=== PATIENT | male | born 1955 | race Caucasian/White ===

== ENCOUNTER 2016-06-28 09:24 | Outpatient (CLI) | payer BC | END 2016-06-28 23:59 | DX: Z00.00 Encounter for general adult medical examination without abnormal findings (principal); Z12.5 Encounter for screening for malignant neoplasm of prostate ==

== ENCOUNTER 2016-07-20 11:38 | Outpatient (CLI) | payer BC | END 2016-07-20 11:39 | disposition home or self-care (01) | DX: S99.921A Unspecified injury of right foot, initial encounter (principal) ==

== ENCOUNTER 2017-01-04 14:30 | Outpatient (CLI) | payer BC | END 2017-01-04 14:31 | disposition home or self-care (01) | LOC: LAB.R 14:30 | PROVIDERS: ATTEND Internal Medicine | DX: E55.9 Vitamin D deficiency, unspecified (principal); Z79.899 Other long term (current) drug therapy | CPT/HCPCS: 82306 ==

== ENCOUNTER 2017-06-27 09:08 | Outpatient (CLI) | payer BC ==
[2017-06-27 17:49] LABS: BASOPHILS # (AUTO) 0.1 10^3/uL (0.0-0.1); BASOPHILS % (AUTO) 1.1 %; EOSINOPHILS # (AUTO) 0.1 10^3/uL (0.0-0.7); EOSINOPHILS % (AUTO) 1.4 %; HGB - HEMOGLOBIN 14.8 g/dL (14.0-18.0); LYMPHOCYTES # (AUTO) 1.2 10^3/uL (1.5-3.5); LYMPHOCYTES % (AUTO) 24.6 %; MEAN CORPUSCULAR HGB CONC 33.5 g/dL (32.0-36.0); MEAN CORPUSCULAR VOLUME 89.7 fL (80.0-94.0); MEAN PLATELET VOLUME 8.2 fL (7.4-11.4); MONOCYTES # (AUTO) 0.3 10^3/uL (0.0-1.0); MONOCYTES % (AUTO) 6.7 %; NEUTROPHILS # (AUTO) 3.3 10^3/uL (1.5-6.6); NEUTROPHILS % (AUTO) 66.2 %; PLT - PLATELET COUNT 193 10^3/uL (130-450); RED BLOOD COUNT 4.93 10^6/uL (4.70-6.10); RED CELL DISTRIBUTION WIDTH 12.9 % (12.0-15.0); WHITE BLOOD COUNT 4.9 x10^3/uL (4.8-10.8)
== END 2017-06-27 09:09 | disposition home or self-care (01) ==
LOC: LAB.F 09:08
PROVIDERS: ATTEND Internal Medicine
DX: G43.909 Migraine, unspecified, not intractable, without status migrainosus (principal); E55.9 Vitamin D deficiency, unspecified
CPT/HCPCS: 36415; 82306; 85025

== ENCOUNTER 2018-07-01 06:57 | Outpatient (CLI) | payer SELFPAY | END 2018-07-01 06:58 | disposition home or self-care (01) | LOC: LAB 06:57 | DX: Z01.89 Encounter for other specified special examinations (principal) | CPT/HCPCS: 36415 ==

== ENCOUNTER 2018-08-19 07:58 | Outpatient (CLI) | payer SELFPAY | END 2018-08-19 07:59 | disposition home or self-care (01) | LOC: LAB 07:58 | DX: Z01.89 Encounter for other specified special examinations (principal) | CPT/HCPCS: 36415 ==

== ENCOUNTER 2018-12-16 14:51 | Outpatient (CLI) | payer SELFPAY | END 2018-12-16 14:52 | disposition home or self-care (01) | LOC: LAB.S 14:51 | PROVIDERS: ATTEND Internal Medicine | DX: Z01.89 Encounter for other specified special examinations (principal) | CPT/HCPCS: 36415 ==

== ENCOUNTER 2019-01-08 09:04 | Outpatient (CLI) | payer BC ==
[2019-01-08 18:07] LABS: ALBUMIN 4.3 g/dL (3.2-5.5); ALBUMIN/GLOBULIN RATIO 1.7 (1.0-2.2); ALKALINE PHOSPHATASE 57 IU/L (42-121); ALT ALANINE AMINOTRANSFERASE 26 IU/L (10-60); AST ASPARTATE AMINOTRANSFERASE 34 IU/L (10-42); BILIRUBIN,TOTAL 1.1 mg/dL (0.2-1.0); BUN - BLOOD UREA NITROGEN 13 mg/dL (6-20); CALCIUM 9.4 mg/dL (8.5-10.3); CARBON DIOXIDE - CO2 29 mmol/L (21-32); CHLORIDE 102 mmol/L (101-111); CHOL/HDL RATIO 2.8 (<5.0); CHOLESTEROL 145 mg/dL; GFR - MDRD 75 (>89); GLUCOSE 96 mg/dL (70-100); HDL CHOLESTEROL 52 mg/dL; LDL CHOLESTEROL,CALCULATED 80 mg/dL; LDL/HDL RATIO 1.5 (<3.6); SODIUM 139 mmol/L (135-145); TOTAL PROTEIN 6.8 g/dL (6.7-8.2); VLDL CHOLESTEROL 13 mg/dL
== END 2019-01-08 09:05 | disposition home or self-care (01) ==
LOC: LAB.S 09:04
PROVIDERS: ATTEND Internal Medicine
DX: Z00.00 Encounter for general adult medical examination without abnormal findings (principal); Z12.5 Encounter for screening for malignant neoplasm of prostate
CPT/HCPCS: 36415; 80053; 80061; 83721; 84153

== ENCOUNTER 2019-04-10 11:45 | Outpatient (CLI) | payer MEDICARE, BC ==
[2019-04-10 18:01] LABS: ALBUMIN 4.3 g/dL (3.2-5.5); BILIRUBIN,DIRECT 0.1 mg/dL (0.1-0.5); BILIRUBIN,TOTAL 0.8 mg/dL (0.2-1.0)
== END 2019-04-10 11:46 | disposition home or self-care (01) ==
LOC: LAB.S 11:45
PROVIDERS: ATTEND Physician Assistant Medical
DX: Z79.899 Other long term (current) drug therapy (principal); B35.1 Tinea unguium
CPT/HCPCS: 36415; 80076

== ENCOUNTER 2019-06-01 07:30 | Outpatient (CLI) | payer MEDICARE, BC | END 2019-06-01 07:31 | disposition home or self-care (01) | LOC: LAB.S 07:30 | PROVIDERS: ATTEND Internal Medicine | DX: Z01.89 Encounter for other specified special examinations (principal) | CPT/HCPCS: 36415; 80053; 80061; 83721; 84153 ==

== ENCOUNTER 2019-10-21 07:24 | Outpatient (CLI) | payer MEDICARE, BC | END 2019-10-21 07:25 | disposition home or self-care (01) | LOC: LAB.S 07:24 | PROVIDERS: ATTEND Family Medicine | DX: E61.9 Deficiency of nutrient element, unspecified (principal); E63.9 Nutritional deficiency, unspecified | CPT/HCPCS: 36415 ==

== ENCOUNTER 2020-06-22 08:43 | Outpatient (CLI) | payer MEDICARE, BC | END 2020-06-22 08:44 | disposition home or self-care (01) | LOC: LAB.S 08:43 | PROVIDERS: ATTEND Family Medicine | DX: E63.9 Nutritional deficiency, unspecified (principal) | CPT/HCPCS: 36415 ==

== ENCOUNTER 2020-07-01 08:34 | Outpatient (CLI) | payer MEDICARE, BC ==
[2020-07-01 15:33] LABS: BASOPHILS # (AUTO) 0.1 10^3/uL (0.0-0.1); BASOPHILS % (AUTO) 1.4 %; EOSINOPHILS % (AUTO) 1.2 %; HCT - HEMATOCRIT 45.3 % (42.0-52.0); HGB - HEMOGLOBIN 14.8 g/dL (14.0-18.0); LYMPHOCYTES # (AUTO) 0.9 10^3/uL (1.5-3.5); LYMPHOCYTES % (AUTO) 25.5 %; MEAN CORPUSCULAR HEMOGLOBIN 30.7 pg (27.0-31.0); MEAN CORPUSCULAR HGB CONC 32.7 g/dL (32.0-36.0); MEAN PLATELET VOLUME 10.6 fL (7.4-11.4); MONOCYTES # (AUTO) 0.3 10^3/uL (0.0-1.0); MONOCYTES % (AUTO) 7.8 %; NEUTROPHILS # (AUTO) 2.2 10^3/uL (1.5-6.6); NEUTROPHILS % (AUTO) 64.1 %; PLT - PLATELET COUNT 199 10^3/uL (130-450); RED BLOOD COUNT 4.82 10^6/uL (4.70-6.10); RED CELL DISTRIBUTION WIDTH 13.2 % (12.0-15.0); WHITE BLOOD COUNT 3.5 x10^3/uL (4.8-10.8)
[2020-07-01 16:13] LABS: THYROID STIMULATING HORMONE 1.78 uIU/mL (0.34-5.60)
[2020-07-01 16:15] LABS: FREE T3 2.88 pg/mL (2.5-3.9); FREE T4 (FREE THYROXINE) 0.86 ng/dL (0.58-1.64)
== END 2020-07-01 08:35 | disposition home or self-care (01) ==
LOC: LAB.S 08:34
PROVIDERS: ATTEND Family Medicine
DX: E03.9 Hypothyroidism, unspecified (principal); R53.82 Chronic fatigue, unspecified; D72.819 Decreased white blood cell count, unspecified
CPT/HCPCS: 36415; 81599; 83789; 84255; 84402; 84403; 84439; 84443; 84481; 84482; 85025

== ENCOUNTER 2020-11-09 07:21 | Outpatient (CLI) | payer MEDICARE, BC ==
[2020-11-09 15:55] LABS: BASOPHILS # (AUTO) 0.1 10^3/uL (0.0-0.1); BASOPHILS % (AUTO) 1.2 %; EOSINOPHILS # (AUTO) 0.1 10^3/uL (0.0-0.7); EOSINOPHILS % (AUTO) 2.2 %; HCT - HEMATOCRIT 42.9 % (42.0-52.0); HGB - HEMOGLOBIN 14.3 g/dL (14.0-18.0); LYMPHOCYTES # (AUTO) 0.9 10^3/uL (1.5-3.5); LYMPHOCYTES % (AUTO) 23.1 %; MEAN CORPUSCULAR HEMOGLOBIN 31.6 pg (27.0-31.0); MEAN CORPUSCULAR HGB CONC 33.3 g/dL (32.0-36.0); MEAN CORPUSCULAR VOLUME 94.7 fL (80.0-94.0); MEAN PLATELET VOLUME 10.3 fL (7.4-11.4); MONOCYTES # (AUTO) 0.3 10^3/uL (0.0-1.0); MONOCYTES % (AUTO) 7.4 %; NEUTROPHILS # (AUTO) 2.7 10^3/uL (1.5-6.6); NEUTROPHILS % (AUTO) 65.9 %; PLT - PLATELET COUNT 207 10^3/uL (130-450); RED BLOOD COUNT 4.53 10^6/uL (4.70-6.10); RED CELL DISTRIBUTION WIDTH 12.6 % (12.0-15.0)
[2020-11-09 16:55] LABS: THYROID STIMULATING HORMONE 2.19 uIU/mL (0.34-5.60)
[2020-11-09 16:57] LABS: FREE T3 3.04 pg/mL (2.5-3.9); FREE T4 (FREE THYROXINE) 0.85 ng/dL (0.58-1.64)
[2020-11-13 16:17] LABS: T3 REVERSE 10 ng/dL (8-25)
[2020-11-15 18:26] LABS: SELENIUM 115 mcg/L (63-160)
== END 2020-11-09 07:22 | disposition home or self-care (01) ==
LOC: LAB.S 07:21
PROVIDERS: ATTEND Family Medicine
DX: E03.9 Hypothyroidism, unspecified (principal); R53.82 Chronic fatigue, unspecified; D72.819 Decreased white blood cell count, unspecified; E07.9 Disorder of thyroid, unspecified
CPT/HCPCS: 36415; 81599; 83789; 84255; 84402; 84403; 84439; 84443; 84481; 84482; 85025

== ENCOUNTER 2022-01-02 09:37 | Outpatient (CLI) | payer BC, MEDICARE | END 2022-01-02 09:38 | disposition home or self-care (01) | LOC: LAB.S 09:37 | DX: Z01.89 Encounter for other specified special examinations (principal) | CPT/HCPCS: 36415 ==

== ENCOUNTER 2022-02-02 07:47 | Outpatient (CLI) | payer BC, MEDICARE | END 2022-02-02 07:48 | disposition home or self-care (01) | LOC: LAB.S 07:47 | DX: E72.12 Methylenetetrahydrofolate reductase deficiency (principal); E55.9 Vitamin D deficiency, unspecified; K90.41 Non-celiac gluten sensitivity | CPT/HCPCS: 36415; 81599; 82306; 83090; 84255 ==

== ENCOUNTER 2022-10-02 22:12 | Outpatient (CLI) | payer BC | END 2022-10-02 22:13 | disposition short-term general hospital (02) | LOC: EMS 22:12 | DX: M54.6 Pain in thoracic spine (principal); M54.2 Cervicalgia; M79.621 Pain in right upper arm; M25.511 Pain in right shoulder; R42 Dizziness and giddiness; R11.0 Nausea | CPT/HCPCS: A0425; A0429 ==

== ENCOUNTER 2023-01-08 12:56 | Outpatient (CLI) | payer BC, MEDICARE ==
[2023-01-08] MEDS ORDERED: GADOTERATE MEGLUMINE 10 MMOL/20 ML VIAL ONE (13:53)
--- NOTE | 2023-01-08 14:57 | XRAY Report ---
PROCEDURE: Cervical Spine 2 View INDICATIONS: NONDISPLACED FRACTURE OF FIFTH CERVICAL VERTEBRA TECHNIQUE: 3 views of the cervical spine were obtained. COMPARISON: 11/07/2022 FINDINGS: Bones: Disc space narrowing and hypertrophic facet joints noted lower cervical spine. Grade 2 anterio r spinal listhesis at C5-6. Spondylolisthesis increases to 5 mm on flexion and decreases to 2 mm on e xtension. Remainder the vertebral bodies have appropriate alignment. Normal craniovertebral relations hips. No radiographic evidence of C5 fracture Soft tissues: No prevertebral soft tissue swelling. IMPRESSION: Grade 2 anterior spondylolisthesis at C5-6 with dynamic instability Reviewed by: Beny Gonsalez MD on 01/08/2023 1:55 PM [place] Approved by: Beny Gonsalez MD on 01/08/2023 1:55 PM [place] Station ID: [id number]
== END 2023-01-08 12:57 | disposition home or self-care (01) ==
LOC: DI 12:56
PROVIDERS: ATTEND Physician Assistant Medical
DX: S12.401D Unspecified nondisplaced fracture of fifth cervical vertebra, subsequent encounter for fracture with routine healing (principal); M43.12 Spondylolisthesis, cervical region; I63.9 Cerebral infarction, unspecified; I77.74 Dissection of vertebral artery
CPT/HCPCS: 36415; 70549; 72040; 80048; A9575

== ENCOUNTER 2023-01-08 12:57 | Outpatient (CLI) | payer BC, MEDICARE ==
[2023-01-08 13:21] LABS: CALCIUM 9.7 mg/dL (8.5-10.3); POTASSIUM 4.6 mmol/L (3.5-4.5)
--- NOTE | 2023-01-08 15:33 | MRI Report ---
PROCEDURE: ANGIO NECK W/WO INDICATIONS: VERTEBRAL ARTERY DISSECTION CONTRAST: clariscan 14ml TECHNIQUE: Axial and sagittal balanced GE through the neck. Coronal dynamic MRA after the administration of con trast in the arterial and venous phases, with rotating 3-dimensional maximum intensity projection (IA P) reformats constructed from subtraction images. COMPARISON: MRI brain 11/05/2022. FINDINGS: Image quality: Artifact is present on multiple sequences. There is nonvisualization of the right vert ebral artery through the mid cervical spine with patency in the proximal portion. Carotid system: Great vessels demonstrate a conventional anatomy as they arise from the aortic arch. The origins of the common carotid arteries appear normal. The calibers and courses of the common c arotid arteries are likewise normal. The carotid bifurcations appear normal bilaterally. The marketing summer intern al carotid arteries are widely patent up to the [place]. Posterior circulation: The origins of the left vertebral artery is unremarkable. The more superior p ortions of the left vertebral artery demonstrates normal course and caliber. There is a markedly dimi nutive appearance of the V4 segment of the right vertebral artery. Miscellaneous: Subclavian arteries are patent throughout. Pre-contrast images through the neck demo nstrate no soft tissue abnormalities. IMPRESSION: Prominent artifact limiting areas of evaluation. The right vertebral artery is not visualized within portions as described above. While this could be artifactual, given history of dissection, underlying pathology cannot be excluded. In addition, the d iminutive portion in the V4 segment may simply be distal reconstitution of flow from the [place] versus true vascular flow from the vertebral artery itself. CTA is recommended for further evalu ation. Reviewed by: Yolanda Rivera MD on 01/08/2023 3:32 PM PDT Approved by: Yolanda Rivera MD on 01/08/2023 3:32 PM PDT Station ID: [id number]
[2023-01-08] MEDS ORDERED: GADOTERATE MEGLUMINE 10 MMOL/20 ML VIAL IVP ONE (17:38)
== END 2023-01-08 12:58 | disposition home or self-care (01) ==
LOC: LAB 12:57
PROVIDERS: ATTEND Psychiatry & Neurology Neurology
DX: I63.9 Cerebral infarction, unspecified (principal); I77.74 Dissection of vertebral artery
CPT/HCPCS: 36415; 80048

== ENCOUNTER 2023-06-20 12:33 | Outpatient (CLI) | payer BC, MEDICARE ==
[2023-06-20 16:03] LABS: ALBUMIN 4.3 g/dL (3.2-5.5); BILIRUBIN,DIRECT 0.11 mg/dL (0.03-0.18); BILIRUBIN,TOTAL 0.7 mg/dL (0.2-1.0); CREATININE 0.9 mg/dL (0.6-1.3); TOTAL PROTEIN 6.7 g/dL (6.4-8.9)
== END 2023-06-20 12:34 | disposition home or self-care (01) ==
LOC: LAB.S 12:33
PROVIDERS: ATTEND Physician Assistant Medical
DX: B35.1 Tinea unguium (principal)
CPT/HCPCS: 36415; 80076; 82565; 84520

== ENCOUNTER 2023-06-21 10:33 | Emergency (ER) | payer BC, MEDICARE ==
[2023-06-21 11:15] LABS: BASOPHILS # (AUTO) 0.1 10^3/uL (0.0-0.1); BASOPHILS % (AUTO) 1.4 %; EOSINOPHILS # (AUTO) 0.1 10^3/uL (0.0-0.7); EOSINOPHILS % (AUTO) 1.4 %; HCT - HEMATOCRIT 44.3 % (42.0-52.0); LYMPHOCYTES % (AUTO) 20.4 %; MEAN CORPUSCULAR HEMOGLOBIN 31.1 pg (27.0-31.0); MEAN CORPUSCULAR HGB CONC 33.9 g/dL (32.0-36.0); MEAN CORPUSCULAR VOLUME 91.9 fL (80.0-94.0); MEAN PLATELET VOLUME 9.9 fL (7.4-11.4); MONOCYTES # (AUTO) 0.4 10^3/uL (0.0-1.0); NEUTROPHILS # (AUTO) 3.4 10^3/uL (1.5-6.6); NEUTROPHILS % (AUTO) 68.6 %; PLT - PLATELET COUNT 199 10^3/uL (130-450); RED BLOOD COUNT 4.82 10^6/uL (4.70-6.10); RED CELL DISTRIBUTION WIDTH 12.2 % (12.0-15.0); WHITE BLOOD COUNT 4.9 x10^3/uL (4.8-10.8)
[2023-06-21 11:23] LABS: ALBUMIN 4.4 g/dL (3.2-5.5); ALBUMIN/GLOBULIN RATIO 1.8 (1.0-2.2); BILIRUBIN,TOTAL 0.8 mg/dL (0.2-1.0); POTASSIUM 4.1 mmol/L (3.5-4.5); TOTAL PROTEIN 6.9 g/dL (6.4-8.9)
[2023-06-21 11:26] LABS: MAGNESIUM 1.8 mg/dL (1.7-2.3)
[2023-06-21 11:28] LABS: TROPONIN I HIGH SENSITIVITY 4.1 ng/L (2.3-19.7)
[2023-06-21 11:45] LABS: THYROID STIMULATING HORMONE 2.16 uIU/mL (0.34-5.60)
--- NOTE | 2023-06-21 11:58 | XRAY Report ---
PROCEDURE: Chest 1V INDICATIONS: Chest pain TECHNIQUE: One view of the chest was acquired. COMPARISON: None. FINDINGS: Surgical changes and devices: None. Lungs and pleura: No pleural effusions or pneumothorax. Lungs are clear. Mediastinum: Mediastinal contours appear normal. Heart size is normal. Bones and chest wall: No suspicious bony lesions. Overlying soft tissues appear unremarkable. IMPRESSION: No acute cardiopulmonary process. Reviewed by: Ramez Haji MD on 06/21/2023 11:56 AM PDT Approved by: Ramez Haji MD on 06/21/2023 11:56 AM PDT Station ID: [id number]
--- NOTE | 2023-06-21 12:53 | ED Physician Documentation ---
History of Present Illness - Stated complaint Stated Complaint: IRREGULAR HR - Chief complaint Chief Complaint: Cardiac - History obtained from History obtained from: Patient - Additonal information Additional information: Patient is a 68-year-old male presenting for evaluation of palpitations that been ongoing intermittently for the past week. Patient states he has had these at times when exercising such as at the gym where he feels like his heart is racing. Last week it happened for several hours and his Fitbit warned him that he could be in atrial fibrillation. However he has had other times at the gym where he has not had the symptoms. He went for a 14 mile bike ride 2 days ago and did not have any palpitations. He did feel palpitations again last night and again this morning prompting him to come to the emergency department. The Fitbit has not warned him of any further possible episodes of atrial fibrillation. Denies history of arrhythmias. Denies drug or alcohol use, excess caffeine use, [id number] cold medication use. Denies having any symptoms such as chest pain, shortness of air, dizziness, feeling faint. Review of Systems Constitutional: denies: Fever Cardiac: reports: Palpitations. denies: Chest pain / pressure Respiratory: denies: Dyspnea GI: denies: Abdominal Pain, Vomiting PD PAST MEDICAL HISTORY - Past Medical History Past Medical History: Yes Neuro: TIA - Past Surgical History Past Surgical History: No - Present Medications Home Medications: Ambulatory Orders Medication Instructions Recorded Confirmed Aspirin [[place]] 81 mg PO DAILY 06/21/23 06/21/23 - Allergies Allergies/Adverse Reactions: Allergies Allergy/AdvReac Type Severity Reaction Status Date / Time No Known Drug Allergies Allergy Verified 06/21/23 11:04 - Social History Does the pt smoke?: No Smoking Status: Never smoker Does the pt drink ETOH?: No Does the pt have substance abuse?: No PD ED PE NORMAL - General General: Alert and oriented X 3, No acute distress, Well developed/nourished - HEENT HEENT: Atraumatic - Neck Neck: Supple, no meningeal sign - Cardiac Cardiac: RRR, Strong equal pulses - Respiratory Respiratory: No respiratory distress, Clear bilaterally - Abdomen Abdomen: Soft, Non tender - Derm Derm: Warm and dry - Extremities Extremities: No edema, No calf tenderness / cord - Neuro Neuro: Normal speech Results - Vitals Vitals: Vital Signs - 24 hr 06/21/23 06/21/23 10:57 12:56 Temperature 36.8 C Heart Rate 74 64 Respiratory 14 15 Rate Blood Pressure 124/75 115/77 O2 Saturation 97 96 Oxygen O2 Source Room air - EKG (time done) 1043 EKG releavant findings:: EKG personally interpreted by author of this note. Relevant findings are: Rate 71, normal sinus rhythm, no STEMI, QTc 409 - Labs Labs: Laboratory Tests 06/21/23 06/21/23 06/21/23 10:52 10:52 10:52 WBC 4.9 RBC 4.82 Hgb 15.0 Hct 44.3 MCV 91.9 MCH 31.1 H MCHC 33.9 RDW 12.2 Plt Count 199 MPV 9.9 Neut # (Auto) 3.4 Lymph # (Auto) 1.0 L [place] # (Auto) 0.4 Eos # (Auto) 0.1 Baso # (Auto) 0.1 Absolute Nucleated RBC 0.00 Nucleated RBC % 0.0 Sodium 138 Potassium 4.1 Chloride 104 Carbon Dioxide 26 Anion Gap 8.0 BUN 16 Creatinine 1.0 Estimated GFR (MDRD) 74 L Glucose 106 H Calcium 10.0 Magnesium 1.8 Total Bilirubin 0.8 AST 23 ALT 16 Alkaline Phosphatase 65 Troponin I High Sens 4.1 Total Protein 6.9 Albumin 4.4 Globulin 2.5 Albumin/Globulin Ratio 1.8 Lipase 43 TSH 2.16 PD Medical Decision Making - ED course Complexity details: reviewed results, d/w patient ED course: Patient is a 68-year-old presenting for evaluation of palpitations. They have b een intermittent over the last week. On 1 occasion his Fitbit raised concerns for atrial fibrillation but did not on other times he felt the episodes. EKG here demonstrates a normal sinus rhythm. He did go to for a 14 mile bike ride the other day without any events. He denies ever having associated dizziness, syncope, chest pain, shortness of air. He is quite active and feels like he is in good health. CBC, chemistry, troponin, magnesium and TSH were reviewed without significant findings. No arrhythmias noted on nurse monitoring here. Chest x-ray without consolidation or cardiomegaly. Patient counseled on need for close follow-up with primary care provider and likely need for Holter monitor to determine the etiology of his palpitations. Patient counseled on strict return precautions for any recurrence of his symptoms or development of any new symptoms. Departure - Departure Disposition: 01 Home, Self Care Clinical Impression: Palpitations Condition: Stable Instructions: ED Palpitations Comments: Your EKG here today shows that your heart is a regular rhythm and your electrolytes and cardiac markers are normal. Your thyroid testing is also normal. Your chest x-ray also does not show any significant abnormalities. I would recommend close follow-up with your primary care provider as you would likely benefit from having a Holter monitor which is a nurse monitoring that you would wear for a few weeks to detect what the irregular rhythm that you are having is. If though you develop any worsening symptoms such as palpitations lasting for few hours or at any time feeling any chest pain, shortness of breath, feeling lightheaded or faint then please return immediately to the emergency department. Forms: PCP List Discharge Date/Time: 06/21/23 13:08
[2023-06-21 13:03] VITALS: BP 115/77; O2SAT 96
== END 2023-06-21 13:08 | disposition home or self-care (01) ==
LOC: ED 10:33
DX: R00.2 Palpitations (principal)
CPT/HCPCS: 36415; 80053; 83690; 83735; 84443; 84484; 85025; 93005; 99283; 99284

== ENCOUNTER 2023-10-11 11:51 | Outpatient (CLI) | payer BC ==
[2023-10-11 15:56] LABS: ALBUMIN 4.2 g/dL (3.2-5.5)
[2023-10-11 16:01] LABS: BILIRUBIN,DIRECT 0.18 mg/dL (0.03-0.18); BILIRUBIN,TOTAL 0.7 mg/dL (0.2-1.0); TOTAL PROTEIN 6.8 g/dL (6.4-8.9)
== END 2023-10-11 11:52 | disposition home or self-care (01) ==
LOC: LAB.S 11:51
PROVIDERS: ATTEND Physician Assistant Medical
DX: B35.1 Tinea unguium (principal)
CPT/HCPCS: 36415; 80076